=== PATIENT | female | born 1965 | race Caucasian/White ===

== ENCOUNTER 2017-01-28 06:47 | Emergency (ER) | payer MEDICAID ==
[~2017-01-28] VITALS: Wt 68.2 kg
[~2017-01-28 06:47] MED LIST: CIPR500T4 PO; DOXY100T20 PO; HYDR-3498 PO; HYDR-3720 PO; METF500T4 PO; METR500T PO; OFLO5DRO7 BOTH EARS; ONDA4TAB35 PO; PANT40TA3 PO; RANI150T9 PO; TRAM50TA2 PO
--- NOTE | 2017-01-28 07:16 | ERD ---
ER Documentation Chief Complaint Date/Time DATE: 01/28/17 TIME: 07:13 Chief Complaint cough HPI 51-year-old female complaining of cough 2 weeks. Cough is nonproductive, worse at night. She feels short of breath when she is coughing. Patient also reports pain in her right upper back and left mid back. States the pain is constant, not related to the cough. Denies fever or chills. Denies nasal congestion. Denies saddle paresthesia. Denies bowel or bladder dysfunction. ROS All systems reviewed and are negative except as per history of present illness. Medications Home Meds Active Scripts Ibuprofen* (Motrin*) 600 Mg Tab, 600 MG PO Q6H Y for PAIN AND OR ELEVATED TEMP, #30 TAB Prov:CHRISTIAN DENISE NP 01/28/17 Guaifenesin* (Robitussin*) 100 Mg/5 Ml Syrup, 200 MG PO Q4H Y for COUGH, #120 ML Prov:CHRISTIAN DENISE NP 01/28/17 Sodium Chloride (Saline Nasal Mist) 126 Ml Mist, 2 SPRAY NASAL Q2H Y for NASAL CONGESTION, #1 BOTTLE Prov:CHRISTIAN DENISE NP 01/28/17 Fluticasone Propionate (Flonase Allergy Relief) 9.9 Ml [place].susp, 1 SPRAY NASAL DAILY, #1 BOTTLE TO EACH NOSTRIL Prov:CHRISTIAN DENISE NP 01/28/17 Ofloxacin* (Floxin* Otic) 0.3% -10 Ml Soln, 5 DROP BOTH EARS BID for 10 Days, BOTTLE Prov:ERIN RIVERS PA-C 05/28/16 Tramadol HCl (Tramadol HCl) 50 Mg Tablet, 50 MG PO Q4 Y for PAIN, #20 TAB Prov:ERIN RIVERS PA-C 05/28/16 Doxycycline Hyclate* (Doxycycline Hyclate*) 100 Mg Tablet.dr, 100 MG PO BID for 7 Days, TAB Prov:ERIN RIVERS PA-C 05/28/16 Hydrocodone Bit-Acetaminophen* ([place]*) 7.5-325 Tablet, 1 TAB PO Q4H Y for PAIN , #14 TAB Prov:EDIS DEGROOT DO 02/24/16 Ranitidine Hcl* (Zantac*) 150 Mg Tablet, 150 MG PO BID Y for abdominal pain, # 30 TAB Prov:MIKAYLAGARTHTORIE DaltonRitchie ST 02/24/16 Ondansetron Hcl* (Zofran* ODT) 4 mg -ODT Tab.disper, 4 MG PO Q6 Y for NAUSEA AND /OR VOMITING, #20 TAB Prov:JUSTINE DICKENS PA-C 08/04/15 Hydrocodone Bit-Acetaminophen* ([place]*) 5-325 Mg Tab, 1 TAB PO Q6 Y for PAIN, # 20 TAB Prov:JUSTINE DICKENS PA-C 08/04/15 Metronidazole* (Flagyl*) 500 Mg Tablet, 500 MG PO Q8 for 10 Days, TAB Prov:AID JORGE NP 07/29/15 Ciprofloxacin Hcl* (Ciprofloxacin Hcl*) 500 Mg Tablet, 500 MG PO BID for 10 Days , TAB Prov:ADI JORGE NP 07/29/15 Hydrocodone Bit-Acetaminophen* ([place]*) 5-325 Mg Tab, 1 TAB PO Q6H Y for PAIN, # 15 TAB Prov:ADI JORGE NP 07/29/15 Metformin Hcl* (Metformin Hcl*) 500 Mg Tablet, 500 MG PO AC BREAKFAST DINNER for 60 Days, TAB Prov:WALTER VELASQUEZ 07/08/15 Pantoprazole* (Protonix*) 40 Mg Tablet.dr, 40 MG PO DAILY for 30 Days, TAB Prov:WALTER VELASQUEZ 07/08/15 Allergies Allergies: Coded Allergies: Penicillins (Verified Allergy, Unknown, 02/24/16) PMhx/Soc Medical and Surgical Hx: pt denies Medical Hx History of Surgery: Yes (LT EAR SX, GALL BLADDER REMOVAL) Anesthesia Reaction: Yes Hx Neurological Disorder: No Hx Respiratory Disorders: No Hx Cardiac Disorders: No Hx Psychiatric Problems: No Hx Miscellaneous Medical Probl: No Hx Alcohol Use: No Hx Substance Use: No Hx Tobacco Use: No Smoking Status: Never smoker Physical Exam Vitals Vital Signs Date Time Temp Pulse Resp B/P Pulse Ox O2 Delivery O2 Flow Rate FiO2 01/28/17 06:54 97.7 66 20 156/71 97 Physical Exam General impression: Well-developed, well-nourished. Alert, oriented, in no acute distress Head: Normocephalic, atraumatic. Eyes: PERRL, EOM normal. Sclerae are normal. Conjunctiva not injected. ENT: External canals patent. TM'sclear. Nasal mucosa boggy and swollen. Oral mucosa and oropharynx are normal. Neck: Supple, nontender. No lymphadenopathy. No nuchal rigidity. Respiration: Normal respiratory effort. Lungs clear to auscultate bilaterally. No wheezes, rales or rhonchi. Cardiovascular: Regular rate and rhythm. No murmurs or extra heart sounds. Abdomen: Abdomen normal to inspection. Nontender. No masses or organomegaly. Bowel sounds normal. Back: Normal to inspection. No midline spine tenderness. No CVA tenderness. No other tenderness. Extremities: Extremities normal to inspection, nontender. ROM normal. Neuro: Mental status normal, speech normal. TICKET ATTENDANT grossly intact. Skin: Normal turgor. No rash or lesions. Psych: Normal mood and affect. Results 24 hrs PROCEDURE: XR Chest. CLINICAL INDICATION: Cough for 2 weeks TECHNIQUE: PA and lateral views of the chest were obtained. COMPARISON: Chest x-ray dated 07/27/2015 FINDINGS: No focal airspace opacification, pleural effusion or pneumothorax is seen. The cardiomediastinal silhouette is within normal limits for size. The osseous structures are unremarkable. IMPRESSION: No radiographic evidence of acute cardiopulmonary disease. 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 Patient symptoms exam findings are consistent with cough secondary to allergic rhinitis. Chest x-ray was obtained at patient's insistence. X-rays negative, read by radiologist. I doubt pneumonia or bronchitis. I doubt spinal fracture, subluxation, spinal epidural abscess, or cauda equina syndrome. Patient appears well, stable for discharge and outpatient management. Medical decision making shared with patient and family. Education provided to patient and family. Patient and family expressed understanding of the plan. Medications on discharge: Flonase, saline nasal spray, Robitussin, ibuprofen. Follow-up: Primary care provider in 2-3 days or return to ED if worse. CHRISTIAN DENISE NP Jan 28, 2017 07:16
--- NOTE | 2017-01-28 07:50 | RADRPT ---
PROCEDURE: XR Chest. CLINICAL INDICATION: Cough for 2 weeks TECHNIQUE: PA and lateral views of the chest were obtained. COMPARISON: Chest x-ray dated 07/27/2015 FINDINGS: No focal airspace opacification, pleural effusion or pneumothorax is seen. The cardiomediastinal si lhouette is within normal limits for size. The osseous structures are unremarkable. IMPRESSION: No radiographic evidence of acute cardiopulmonary disease. RPTAT: HH .Malena Goodwin MD, MD Date Time Electronically viewed and signed by .Malena Goodwin MD, MD on 01/28/2017 07:50 .G/
[2017-01-28] MEDS ORDERED: IBUP-1542 PO (08:48)
[2017-01-28] MEDS ORDERED: SODI126M NASAL (08:48)
[2017-01-28] MEDS ORDERED: FLUT9.9S NASAL (08:48)
[2017-01-28] MEDS ORDERED: GUAI-637 PO (08:48)
== END 2017-01-28 08:57 | disposition home or self-care (01) ==
LOC: FTE 06:47
DX: R05 Cough (principal); J30.9 Allergic rhinitis, unspecified; E11.9 Type 2 diabetes mellitus without complications; Z79.84 Long term (current) use of oral hypoglycemic drugs
CPT/HCPCS: 71020; Z7502

== ENCOUNTER 2017-06-27 20:47 | Emergency (ER) | payer MEDICAID ==
[~2017-06-27] VITALS: Wt 82.0 kg
[~2017-06-27 20:47] MED LIST changes: +FLUT9.9S NASAL; +GUAI-637 PO; +IBUP-1542 PO; +SODI126M NASAL
[2017-06-27] MEDS ORDERED: ACETAMINOPHEN 500 MG TAB PO STA (21:14)
--- NOTE | 2017-06-27 22:08 | ERD ---
ER Documentation Chief Complaint Date/Time DATE: 06/27/17 TIME: 22:04 Chief Complaint Right facial numbness started last night. HTN. 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 The patient presents complaining of left ear pain. She describes 2 days of generalized malaise, rhinorrhea, nasal congestion and dry nonproductive cough. She is now describing left ear pain that is throbbing and moderate. She describes numbness to that area. It is unclear why triage noted mild left brow weakness because the patient denies this. She denies any facial droop paresthesias to the extremities or motor weakness. Her blood pressure is elevated she denies a history of hypertension or states she does not take medications. ROS All systems reviewed and are negative except as per history of present illness. Medications Home Meds Active Scripts Azithromycin* (Zithromax*) 250 Mg Tablet, 250 MG PO .ZPACK DIRECTED, #6 TAB TAKE 500 MG (2 TABS) THE FIRST DAY THEN 250 MG (1 TAB) DAYS 2-5 Prov:AKILA MCGARRY MD 06/27/17 Ibuprofen* (Motrin*) 800 Mg Tab, 800 MG PO Q6H Y for PAIN AND OR ELEVATED TEMP, #30 TAB Prov:AKILA MCGARRY MD 06/27/17 Ibuprofen* (Motrin*) 600 Mg Tab, 600 MG PO Q6H Y for PAIN AND OR ELEVATED TEMP, #30 TAB Prov:CHRISTIAN DENISE NP 01/28/17 Guaifenesin* (Robitussin*) 100 Mg/5 Ml Syrup, 200 MG PO Q4H Y for COUGH, #120 ML Prov:CHRISTIAN DENISE NP 01/28/17 Sodium Chloride (Saline Nasal Mist) 126 Ml Mist, 2 SPRAY NASAL Q2H Y for NASAL CONGESTION, #1 BOTTLE Prov:CHRISTIAN DENISE NP 01/28/17 Fluticasone Propionate (Flonase Allergy Relief) 9.9 Ml [place].susp, 1 SPRAY NASAL DAILY, #1 BOTTLE TO EACH NOSTRIL Prov:CHRISTIAN DENISE NP 01/28/17 Ofloxacin* (Floxin* Otic) 0.3% -10 Ml Soln, 5 DROP BOTH EARS BID for 10 Days, BOTTLE Prov:ERIN RIVERS PA-C 05/28/16 Tramadol HCl (Tramadol HCl) 50 Mg Tablet, 50 MG PO Q4 Y for PAIN, #20 TAB Prov:ERIN RIVERS PA-C 05/28/16 Doxycycline Hyclate* (Doxycycline Hyclate*) 100 Mg Tablet.dr, 100 MG PO BID for 7 Days, TAB Prov:ERIN RIVERS PA-C 05/28/16 Hydrocodone Bit-Acetaminophen* ([place]*) 7.5-325 Tablet, 1 TAB PO Q4H Y for PAIN , #14 TAB Prov:LEKKOS,APOSTOLOS A. DO 02/24/16 Ranitidine Hcl* (Zantac*) 150 Mg Tablet, 150 MG PO BID Y for abdominal pain, # 30 TAB Prov:LEKKOS,APOSTOLOS A. DO 02/24/16 Ondansetron Hcl* (Zofran* ODT) 4 mg -ODT Tab.disper, 4 MG PO Q6 Y for NAUSEA AND /OR VOMITING, #20 TAB Prov:JUSTINE DICKENS PA-C 08/04/15 Hydrocodone Bit-Acetaminophen* ([place]*) 5-325 Mg Tab, 1 TAB PO Q6 Y for PAIN, # 20 TAB Prov:JUSTINE DICKENS PA-C 08/04/15 Metronidazole* (Flagyl*) 500 Mg Tablet, 500 MG PO Q8 for 10 Days, TAB Prov:ADI JORGE NP 07/29/15 Ciprofloxacin Hcl* (Ciprofloxacin Hcl*) 500 Mg Tablet, 500 MG PO BID for 10 Days , TAB Prov:ADI JORGE NP 07/29/15 Hydrocodone Bit-Acetaminophen* ([place]*) 5-325 Mg Tab, 1 TAB PO Q6H Y for PAIN, # 15 TAB Prov:ADI JORGE NP 07/29/15 Metformin Hcl* (Metformin Hcl*) 500 Mg Tablet, 500 MG PO AC BREAKFAST DINNER for 60 Days, TAB Prov:WALTER VELASQUEZ 07/08/15 Pantoprazole* (Protonix*) 40 Mg Tablet.dr, 40 MG PO DAILY for 30 Days, TAB Prov:WALTER VELASQUEZ 07/08/15 Allergies Allergies: Coded Allergies: Penicillins (Verified Allergy, Unknown, 02/24/16) PMhx/Soc History of Surgery: Yes (LT EAR SX, GALL BLADDER REMOVAL) Anesthesia Reaction: No Hx Neurological Disorder: No Hx Respiratory Disorders: No Hx Cardiac Disorders: No Hx Psychiatric Problems: No Hx Miscellaneous Medical Probl: No (boarderline DM) Hx Alcohol Use: No Hx Substance Use: No Hx Tobacco Use: No Smoking Status: Never smoker FmHx Family History: No diabetes Physical Exam Vitals Vital Signs Date Time Temp Pulse Resp B/P Pulse Ox O2 Delivery O2 Flow Rate FiO2 06/27/17 22:10 68 140/76 06/27/17 20:55 97.6 69 20 207/93 98 Physical Exam General: Well developed, well nourished, no acute distress Head: Normocephalic, atraumatic Eyes: Pupils equally reactive, EOM intact ENT: Moist mucous membranes, left tympanic membrane is erythematous and bulging , posterior pharynx without swelling or exudates, no tenderness to the sinuses both frontal and maxillary Neck: Supple, no lymphadenopathy Respiratory: Lungs clear bilaterally, no distress Cardiovascular: RRR, no murmurs, rubs, or gallops Abdominal: Soft, non-tender, non-distended, no peritoneal signs : Deferred MSK: No edema, no unilateral swelling, 5/5 strength Neurologic: Alert and oriented, moving all extremities, normal speech, no focal weakness, no cerebellar signs, no pronator drift, steady gait, no facial droop or peripheral 7th nerve palsy, normal rapid alternating movements Skin: No rash Psych: Normal mood Results 24 hrs Current Medications Medications (Trade) Dose Ordered Sig/Theodora Route PRN Reason Start Time Stop Time Status Last Admin Dose Admin Acetaminophen (Tylenol Tab) 1,000 mg ONCE STAT PO 06/27/17 21:14 06/27/17 21:15 DC 06/27/17 21:21 Procedures/MDM EKG, MONITORS, & DIAGNOSTIC IMAGING: CT brain: IMPRESSION: 1. Unremarkable CT brain for age. Negative for evidence of acute intracranial hemorrhage or significant mass effect. Cause for headache is not evident. 2. Left middle ear ossicles are not visualized. Recommend correlation with ENT history and evidence of left conductive hearing loss. Ordered in triage EKG: I reviewed and interpreted a 12-lead EKG. Rhythm: Normal sinus rhythm Ectopy: None Intervals: No abnormalities ST segments: No elevations or depressions T waves: No contiguous inversions MEDICAL DECISION MAKING: The patient presents with left ear pain rhinorrhea nasal congestion and dry cough that is most consistent with likely viral process. Her clinical exam reveals a left otitis media. This is most likely viral but the patient will benefit from antibiotics given evidence of otitis media. The patient does not have any motor weakness. Again unclear why triage noted brow weakness as this is not accurate. The patient has no evidence of 7th nerve palsy and no evidence of stroke. She has a thorough and nonfocal neurologic examination. Patient's blood pressure was elevated (>120/80) but appears stable without evidence of hypertensive emergency or urgency. The patient was counseled about the risks of hypertension and urged to pursue outpatient monitoring and therapy within a week with their primary care physician. Given the patient is having an elevated blood pressure with ear pain I believe a CT of the brain to rule out hemorrhage would be appropriate. The pain response may be causing elevated blood pressure therefore I do not believe that initiation of antihypertensive is absolutely necessary. The patient was strongly urged to follow-up with primary care physician for repeat blood pressure to evaluate and establish a possible diagnosis of essential hypertension. ER COURSE: The patient was given Tylenol. CT brain is negative. The patient will be started on azithromycin. I kept the patient and/or family informed of laboratory and diagnostic imaging results throughout the emergency room course. DISPOSITION PLAN: We discussed follow up with the patient's primary care doctor within 24 to 48 hours as needed. We also discussed return to the emergency room for worsening symptoms or worsening condition. Outpatient referral: [None required] Discharge Medications: Motrin, azithromycin Departure Diagnosis: Primary Impression: Upper respiratory tract infection URI type: unspecified URI Qualified Code: J06.9 - Upper respiratory tract infection, unspecified type Additional Impressions: Left acute otitis media Hypertension Hypertension type: unspecified Qualified Code: I10 - Hypertension, unspecified type Condition: Stable AKILA MCGARRY MD Jun 27, 2017 22:08
[2017-06-27] MEDS ORDERED: AZIT250T94 PO (22:09)
[2017-06-27] MEDS ORDERED: IBUP800T25 PO (22:09)
--- NOTE | 2017-06-27 22:43 | RADRPT ---
PROCEDURE: CT HEAD WITHOUT CONTRAST: CLINICAL INDICATION: 52 years of age, female, headache . COMPARISON: None available. TECHNIQUE: CT of the head was performed without IV contrast. Coronal and sagittal reformatted images were obtained from the axial source images. Images were reviewed on a high-resolution PACS workstat ion. Dose information: The estimated radiation dose (CTDIvol mGy) for each series in this exam is 44. Th e estimated cumulative dose (DLP mGy-cm) is 720. One or more of the following dose reduction techniques were used: - Automated exposure control. - Adjustment of the mA and/or kV according to patient size. - Use of iterative reconstruction technique. FINDINGS: Parenchyma: Negative for evidence of acute intracranial hemorrhage, significant mass effect or midli ne shift. [place]-white matter differentiation is maintained. Ventricles and extra-axial spaces: Ventricles are proportionate to the sulci and in keeping with age . No abnormal extra-axial fluid collections are identified. Visualized paranasal sinuses: Clear. Mastoid air cells: Clear. Left middle ear ossicles are not visualized. Bones: No focal abnormality. Additional comment: None. IMPRESSION: 1. Unremarkable CT brain for age. Negative for evidence of acute intracranial hemorrhage or signifi cant mass effect. Cause for headache is not evident. 2. Left middle ear ossicles are not visualized. Recommend correlation with ENT history and evidence of left conductive hearing loss. RPTAT: HCTS Physician Macrina Date Time Electronically viewed and signed by Physician Macrina on 06/27/2017 22:42 /
[2017-06-27 23:15] VITALS: BP 135/77; PULSE 68; RESP 20
== END 2017-06-27 23:16 | disposition home or self-care (01) ==
LOC: E/R 20:47
DX: J06.9 Acute upper respiratory infection, unspecified (principal); H66.92 Otitis media, unspecified, left ear; I10 Essential (primary) hypertension; Z79.84 Long term (current) use of oral hypoglycemic drugs
CPT/HCPCS: 70450; 93005; Z7502; Z7610

== ENCOUNTER 2018-06-15 06:16 | Emergency (ER) | END 2018-06-15 07:18 | disposition home or self-care (01) ==

== ENCOUNTER 2019-01-22 19:47 | Emergency (ER) | payer OTHER ==
[~2019-01-22] VITALS: Ht 152.4 cm; Wt 83.4 kg
[~2019-01-22 19:47] MED LIST changes: +ALBU8.5H8 INH; +AZIT250T PO; +HYDR25TA6 PO; +IBUP800T48 PO; +METF500T24 PO; -METF500T4 PO; +RANI150T35 PO; -RANI150T9 PO
[2019-01-22 19:59] VITALS: Ht 152.4 cm; Wt 83.4 kg
--- NOTE | 2019-01-22 23:32 | ERD ---
ER Documentation Chief Complaint Chief Complaint lower abd pain x 2 months, worse today HPI This is a 53-year-old female with a past medical history of diabetes, hypertension, asthma, GERD, cholecystitis status post cholecystectomy who is presenting with exacerbated chronic lower abdominal pain. The patient reports that she has had intermittent waxing and waning moderate sharp colicky suprapubic abdominal pain. She had an exacerbated episode this evening, which is what prompted her to come to the emergency department. The patient reports that her abdominal pain is migratory, and sometimes she feels it in the left lower quadrant and left upper quadrant as well. Tonight, however, her symptoms are more isolated to the suprapubic region. The patient denies dysuria or hematuria or urgency or frequency. She denies any constipation or diarrhea. She denies any black or bloody or tarry stools. She denies nausea or vomiting. The patient reports that she has not followed up with her doctor for her symptoms. The patient denies feeling sick recently. The patient denies fever or chills. The patient has had no headache or vision changes. The patient does not endorse neck or back pain. The patient denies lightheadedness or dizziness. The patient has had no chest pain or trouble breathing. The patient has had no focal deficits. The patient has had no weakness or numbness or tingling to the face or extremities. ROS All systems reviewed and are negative except as per history of present illness. Medications Home Meds Active Scripts Albuterol Sulfate* (Proair HFA*) 8.5 Gm Hfa.aer.ad, 2 PUFF INH Q4H PRN for WHEEZING AND SOB, #1 INHALER Prov:ASTRID CHAVIRA 06/15/18 Hydrochlorothiazide* (Hydrochlorothiazide*) 25 Mg Tab, 25 MG PO DAILY, #30 TAB Prov:ASTRID CHAVIRA 06/15/18 Azithromycin* (Zithromax*) 250 Mg Tablet, 250 MG PO .ZPACK DIRECTED, #6 TAB TAKE 500 MG (2 TABS) THE FIRST DAY THEN 250 MG (1 TAB) DAYS 2-5 Prov:AKILA MCGARRY MD 06/27/17 Ibuprofen* (Motrin*) 800 Mg Tab, 800 MG PO Q6H PRN for PAIN AND OR ELEVATED TEMP, #30 TAB Prov:AKILA MCGARRY MD 06/27/17 Ibuprofen* (Motrin*) 600 Mg Tab, 600 MG PO Q6H PRN for PAIN AND OR ELEVATED TEMP, #30 TAB Prov:CHRISTIAN DENISE NP 01/28/17 Guaifenesin* (Robitussin*) 100 Mg/5 Ml Syrup, 200 MG PO Q4H PRN for COUGH, #120 ML Prov:CHRISTIAN DENISE NP 01/28/17 Sodium Chloride (Saline Nasal Mist) 126 Ml Mist, 2 SPRAY NASAL Q2H PRN for NASAL CONGESTION, #1 BOTTLE Prov:CHRISTIAN DENISE TEACHING PASTOR 01/28/17 Fluticasone Propionate (Flonase Allergy Relief) 9.9 Ml [place].susp, 1 SPRAY NASAL DAILY, #1 BOTTLE TO EACH NOSTRIL Prov:CHRISTIAN DENISE NP 01/28/17 Ofloxacin* (Floxin* Otic) 0.3% -10 Ml Soln, 5 DROP BOTH EARS BID for 10 Days, BOTTLE Prov:ERIN RIVERS PA-C 05/28/16 Tramadol HCl (Tramadol HCl) 50 Mg Tablet, 50 MG PO Q4 PRN for PAIN, #20 TAB Prov:ERIN RIVERS PA-C 05/28/16 Doxycycline Hyclate* (Doxycycline Hyclate*) 100 Mg Tablet.dr, 100 MG PO BID for 7 Days, TAB Prov:ERIN RIVERS PA-C 05/28/16 Hydrocodone Bit-Acetaminophen* ([place]*) 7.5-325 Tablet, 1 TAB PO Q4H PRN for PAIN, #14 TAB Prov:EDIS DEGROOT DO 02/24/16 Ranitidine Hcl* (Zantac*) 150 Mg Tablet, 150 MG PO BID PRN for abdominal pain, #30 TAB Prov:EDIS DEGROOT DO 02/24/16 Ondansetron Hcl* (Zofran* ODT) 4 mg -ODT Tab.disper, 4 MG PO Q6 PRN for NAUSEA AND/OR VOMITING, #20 TAB Prov:JUSTINE DICKENS PA-C 08/04/15 Hydrocodone Bit-Acetaminophen* ([place]*) 5-325 Mg Tab, 1 TAB PO Q6 PRN for PAIN, #20 TAB Prov:JUSTINE DICKENS PA-C 08/04/15 Metronidazole* (Flagyl*) 500 Mg Tablet, 500 MG PO Q8 for 10 Days, TAB Prov:ADI JORGE FRANKLIN 07/29/15 Ciprofloxacin Hcl* (Ciprofloxacin Hcl*) 500 Mg Tablet, 500 MG PO BID for 10 Days, TAB Prov:ADI JORGE TEACHING PASTOR 07/29/15 Hydrocodone Bit-Acetaminophen* ([place]*) 5-325 Mg Tab, 1 TAB PO Q6H PRN for PAIN, #15 TAB Prov:ADI JORGE TEACHING PASTOR 07/29/15 Metformin Hcl* (Metformin Hcl*) 500 Mg Tablet, 500 MG PO AC BREAKFAST DINNER for 60 Days, TAB Prov:WALTER VELASQUEZ 07/08/15 Pantoprazole* (Protonix*) 40 Mg Tablet.dr, 40 MG PO DAILY for 30 Days, TAB Prov:WALTER VELASQUEZ 07/08/15 Allergies Allergies: Coded Allergies: Penicillins (Verified Allergy, Unknown, 02/24/16) PMhx/Soc History of Surgery: Yes (LT EAR SX, Cholecystectomy) Anesthesia Reaction: No Hx Neurological Disorder: No Hx Respiratory Disorders: Yes (Asthma) Hx Cardiac Disorders: Yes (Hypertension, diabetes) Hx Psychiatric Problems: No Hx Miscellaneous Medical Probl: Yes (GERD) Hx Alcohol Use: No Hx Substance Use: No Hx Tobacco Use: No Smoking Status: Never smoker FmHx Family History: diabetes Physical Exam Vitals Vital Signs Date Temp Pulse Resp B/P (MAP) Pulse Ox O2 O2 Flow FiO2 Time Delivery Rate 01/23/19 65 18 133/87 100 00:20 (102) 01/22/19 98.2 71 18 189/90 98 19:59 (123) Physical Exam Const: No apparent distress, well-developed, well-nourished Head: Normocephalic, Atraumatic Eyes: Normal Conjunctiva. Extraocular movements intact. ENT: Normal External Ears, Nose and Mouth. Neck: Full range of motion. No meningismus. Resp: Clear to auscultation bilaterally, No wheezes, rales or rhonchi Cardio: Regular rate and rhythm. No murmurs, rubs or gallops Abd: Soft, non distended. Suprapubic tenderness. Normal bowel sounds Skin: No petechiae or rashes Back: No midline tenderness. No CVA tenderness Ext: No cyanosis, or edema Neur: Awake and alert, oriented 4. Cranial nerves intact. No facial droop. Normal strength, sensation and coordination. Psych: Normal Mood and Affect Result Diagram: 01/22/19 2325 01/22/192324 Results 24 hrs Laboratory Tests Test 01/22/19 22:34 01/22/19 23:25 Urine Color STRAW Urine Clarity CLEAR Urine pH 6.0 Urine Specific [place] 1.005 Urine Ketones NEGATIVE mg/dL Urine Nitrite NEGATIVE mg/dL Urine Bilirubin NEGATIVE mg/dL Urine Urobilinogen NEGATIVE mg/dL Urine Leukocyte Esterase NEGATIVE Air[place]/ul Urine Hemoglobin NEGATIVE mg/dL Urine Glucose NEGATIVE mg/dL Urine Total Protein NEGATIVE mg/dl White Blood Count 7.3 10^3/ul Red Blood Count 4.61 10^6/ul Hemoglobin 13.5 g/dl Hematocrit 40.4 % Mean Corpuscular Volume 87.6 fl Mean Corpuscular Hemoglobin 29.3 pg Mean Corpuscular Hemoglobin Concent 33.4 g/dl Red Cell Distribution Width 13.2 % Platelet Count 190 10^3/UL Mean Platelet Volume 12.3 fl Immature Granulocytes % 0.400 % Neutrophils % 60.0 % Lymphocytes % 30.1 % Monocytes % 7.4 % Eosinophils % 1.6 % Basophils % 0.5 % Nucleated Red Blood Cells % 0.0 /100WBC Immature Granulocytes # 0.030 10^3/ul Neutrophils # 4.4 10^3/ul Lymphocytes # 2.2 10^3/ul Monocytes # 0.5 10^3/ul Eosinophils # 0.1 10^3/ul Basophils # 0.0 10^3/ul Nucleated Red Blood Cells # 0.0 10^3/ul Sodium Level 142 mmol/L Potassium Level 4.6 mmol/L Chloride Level 104 mmol/L Carbon Dioxide Level 26 mmol/L Anion Gap 12 Blood Urea Nitrogen 12 mg/dl Creatinine 0.43 mg/dl Est Glomerular Filtrat Rate mL/min > 60 mL/min Glucose Level 137 mg/dl Calcium Level 9.5 mg/dl Total Bilirubin 0.5 mg/dl Direct Bilirubin 0.00 mg/dl Indirect Bilirubin 0.5 mg/dl Aspartate Amino Transf (AST/SGOT) 31 IU/L Alanine Aminotransferase (ALT/SGPT) 22 IU/L Alkaline Phosphatase 66 IU/L Total Protein 7.4 g/dl Albumin 4.3 g/dl Globulin 3.10 g/dl Albumin/Globulin Ratio 1.38 Lipase 37 U/L Current Medications Medications Dose Sig/Theodora Start Time Status Last (Trade) Ordered Route PRN Stop Time Admin Dose Reason Admin Ketorolac 15 mg ONCE STAT 01/23/19 DC Tromethamine IV 00:51 01/23/19 (Toradol) 00:52 Sodium 1,000 ml @ Q1H ONCE 01/23/19 Chloride 1,000 mls/hr IV 01:00 01/23/19 01:59 Procedures/MDM MDM The patient's presentation warrants further investigation. Previous medical records, if available, were reviewed. LABS The patient's laboratory testing was obtained and reviewed. No emergent treatment was required unless described below. CBC: No E/o systemic infection or severe anemia or thrombocytopenia Chemistry: No E/o severe acidosis or alkalosis or renal failure or liver disease or diabetic ketoacidosis Lipase: No E/o pancreatitis Urine: No E/o acute infection or hematuria IMAGING Imaging and Radiology interpretation reviewed. CT abdomen pelvis FINDINGS: There is no bowel obstruction or ileus. The appendix is visualized. There is no evidence for appendicitis. There is no evidence for diverticulitis. There is no free fluid. The liver is overall normal in size. No intrahepatic lesions are identified. The gallbladder has been removed. There is no definite biliary ductal dilation. Pancreas is normal in appearance. The spleen is unremarkable. There are no adrenal masses. The aorta is normal caliber. Kidneys are normal in appearance without hydronephrosis, mass or calculus.. Ureters are of normal caliber and without evidence for an obstructing calculus. The urinary bladder is partially contracted. Uterus is enlarged measuring 9.9 x 5.6 x 8.6 cm. The ovaries are not well characterized. Limited evaluation of th e lung bases demonstrates bibasilar atelectasis. There are degenerative changes of the lumbar spine. There is 3 mm anterior subluxation L5 on S1 with associated severe bilateral facet hypertrophy. IMPRESSION: 1. No bowel obstruction or ileus. 2. No evidence for appendicitis or diverticulitis. 3. No obstructive uropathy. Contracts urinary bladder. 4. Status post cholecystectomy. 5. Enlarged uterus, possibly fibroids. Recommend correlation with pelvic ultrasound. 6. Degenerative lumbar spine including 3 mm anterior subluxation of L5 on S1. Electronically viewed and signed by Jason Armendariz MD, on 01/23/2019 00:57 TREATMENT/DISPOSITION The patient presents with suprapubic abdominal pain. The patient does not have a urinary tract infection. Bladder spasm is certainly a possibility. The patient also appears to have uterine fibroids, which could be the etiology of her symptoms as well. The patient also endorses intermittent episodes of left- sided pain as well. A CT scan was completed. The patient does not endorse any black or bloody or tarry stools. I do not see evidence of diverticulosis or diverticulitis. The patient does not have any evidence of peritonitis. The patient does not have clinical symptoms concerning for mesenteric ischemia or ischemic colitis. The patient does not have right upper quadrant tenderness, and she had a previous cholecystectomy. I have low suspicion for gallstones, cholecystitis or biliary colic. The patient does not have any epigastric pain. I have low suspicion for gastritis, PUD or GERD at this time. The patient does not have left upper quadrant tenderness currently. Her lipase is normal. I have low suspicion for pancreatitis. The patient does not have any right lower quadrant tenderness, or periumbilical tenderness. I have low suspicion for appendicitis. The patient does not have any flank tenderness. The patient does not have gross hematuria. I have decreased suspicion for nephrolithiasis or renal colic. The patient does not have any palpable pulsatile mass or severe abdominal pain radiating to the back. I have low suspicion for aortic aneurysm, dissection or rupture. The patient was treated with IV fluids, Toradol. DISCHARGE Upon reevaluation of the patient, symptoms have improved. No emergent diagnoses were identified. At this time, I feel that the patient stable for discharge. The patient was instructed to follow-up with a primary care physician in 1-3 days. The patient will be given strict precautions with which to return to the emergency department. Prescriptions: Zofran, ibuprofen The patient's blood pressure was elevated at greater than 120/80 while in the emergency department. The patient was otherwise stable with no evidence of hypertensive urgency or emergency. The patient does not require admission for blood pressure control. I have discussed with the patient the risks of hypertension. I have instructed the patient to return to the ER for any new or worsening symptoms including chest pain, shortness of breath, headache, blurred vision, confusion, nausea, vomiting or LOC. I have advised the patient to follow up with the primary care physician for outpatient monitoring and treatment for hypertension in 1-3 days. Disclaimer: Inadvertent spelling and grammatical errors are likely due to EHR/dictation software use and do not reflect on the overall quality of patient care. Note that the electronic time recorded on this note does not necessarily reflect the actual time of the patient encounter. Departure Diagnosis: Primary Impression: Suprapubic pain Additional Impression: Uterine fibroid Uterine leiomyoma location: unspecified location Qualified Codes: D25.9 - Leiomyoma of uterus, unspecified Condition: Stable Patient Instructions: Abdominal Pain Additional Instructions: Thank you for for coming to [facility] for your care today. Please ask your nurse or provider if you have questions about your care today and do not leave until all your questions have been answered. Please use any medications given as directed and follow-up with your doctor (or the doctor you were referred to) in the next 1-3 days. If you do not have a primary care doctor you may follow up at the [facility] or [facility] (listed below). You may also use motrin and tylenol as needed for fever and/or pain unless instructed otherwise by your provider or nurse. Indications for more urgent follow-up have been discussed, but you may return to the Emergency Department at ANY time for any worrisome or worsening symptoms. If you have abdominal pain, please know that no test or exam you received is perfect and you should follow up within 8 hours for continued pain. If you had any imaging studies today, such as an X-Ray or CT Scan, these studies will be reviewed later by a radiologist. You will be called if there are important findings that were not identified today, so make sure the contact information you provided at registration is correct. If you received any narcotic pain control medicine today, such as Vicodin, Morphine or Dilaudid, your coordination and judgment may be affected for a number of hours. Please do not drive or operate heavy machinery, and you may want someone to assist you at home. If you were given a prescription for yessenia cotic medication, be aware that it is very addictive- use sparingly and only if necessary. PLEASE SEEK FURTHER EVALUATION AND MANAGEMENT AT YOUR DOCTORS OFFICE WITHIN THE NEXT 1-3 DAYS. IT IS YOUR RESPONSIBILITY TO MAKE AN APPOINTMENT FOR FOLOW-UP CARE. IF YOU HAVE A PRIMARY DOCTOR, PLEASE CALL THEIR OFFICE TO SCHEDULE AN APPOINTMENT FOR FOLLOW UP. IF YOU DO NOT HAVE A PRIMARY DOCTOR YOU CAN CALL OUR PHYSICIAN REFERRAL HOTLINE AT IF YOU CAN NOT AFFORD TO SEE A PHYSICIAN YOU CAN CHOSE FROM THE FOLLOWING [facility]: [facility] [address] [facility] [address] [facility]. [facility] [address] [facility] [address] [facility] [address] [facility] [facility] [address] EMBER ROSALES MD Jan 22, 2019 23:32
[2019-01-23 00:20] VITALS: BP 133/87; PULSE 65; RESP 18
[2019-01-23] MEDS ORDERED: KETOROLAC 15 MG INJ IV STA (00:51)
[2019-01-23] MEDS ORDERED: SOD CHLORIDE 0.9% 1,000 ML IV ONE (01:00)
[2019-01-23] MEDS ORDERED: IBUP-1542 PO (01:12)
[2019-01-23] MEDS ORDERED: ONDA4TAB8 PO (01:13)
== END 2019-01-23 01:35 | disposition home or self-care (01) ==
LOC: E/R 19:47
DX: D25.9 Leiomyoma of uterus, unspecified (principal); I10 Essential (primary) hypertension; J45.909 Unspecified asthma, uncomplicated; E11.9 Type 2 diabetes mellitus without complications; Z79.84 Long term (current) use of oral hypoglycemic drugs
CPT/HCPCS: 36415; 74176; 80053; 81003; 83690; 85025; 96374; J1885; J7030; Z7502

== ENCOUNTER 2019-01-25 13:11 | Emergency (ER) | payer OTHER ==
[~2019-01-25] VITALS: Ht 160 cm; Wt 83.4 kg
[~2019-01-25 13:11] MED LIST changes: +ONDA4TAB8 PO
[2019-01-25 13:17] VITALS: Ht 160 cm; Wt 83.4 kg
[2019-01-25] MEDS ORDERED: ACET500C5 PO (17:58)
[2019-01-25 18:14] VITALS: BP 167/84; PULSE 65; RESP 18
--- NOTE | 2019-01-26 14:39 | ERD ---
ER Documentation Chief Complaint Chief Complaint c/o vag bleed x2 days, Hx: fibroids HPI 53-year-old female patient with a past medical history of diabetes, asthma, hypertension presents to the ED stating that she had some vaginal bleeding that started yesterday. Patient was here a few days ago and was diagnosed with fibroids for her lower abdominal pain. Patient had a full workup. Patient went to the clinic and was sent here for further evaluation and treatment. Patient reports that she has had to change to 3 pads earlier today. Denies any fever, chills, nausea, vomiting, diarrhea, neck stiffness, chest pain, shortness of breath. Denies any bloody stools, hemoptysis, hematuria. ROS All systems reviewed and are negative except as per history of present illness. Medications Home Meds Active Scripts Acetaminophen* (Tylophen*) 500 Mg Capsule, 1 CAP PO Q6H PRN for PAIN AND OR ELEVATED TEMP, #20 CAP Prov:ERIN RIVERS PA-C 01/25/19 Ondansetron Hcl* (Zofran*) 4 Mg Tablet, 4 MG PO Q8H PRN for NAUSEA AND/OR VOMITING, #30 TAB Prov:EMBER KELLY MD 01/23/19 Ibuprofen* (Motrin*) 600 Mg Tab, 600 MG PO Q6H PRN for PAIN AND/OR INFLAMMATION, #30 TAB Prov:EMBER KELLY MD 01/23/19 Albuterol Sulfate* (Proair HFA*) 8.5 Gm Hfa.aer.ad, 2 PUFF INH Q4H PRN for WHEEZING AND SOB, #1 INHALER Prov:ASTRID CHAVIRA 06/15/18 Hydrochlorothiazide* (Hydrochlorothiazide*) 25 Mg Tab, 25 MG PO DAILY, #30 TAB Prov:ASTRID CHAVIRA 06/15/18 Azithromycin* (Zithromax*) 250 Mg Tablet, 250 MG PO .AnabellaPACK DIRECTED, #6 TAB TAKE 500 MG (2 TABS) THE FIRST DAY THEN 250 MG (1 TAB) DAYS 2-5 Prov:AKILA MCGARRY MD 06/27/17 Ibuprofen* (Motrin*) 800 Mg Tab, 800 MG PO Q6H PRN for PAIN AND OR ELEVATED TEMP, #30 TAB Prov:AKILA MCGARRY MD 06/27/17 Ibuprofen* (Motrin*) 600 Mg Tab, 600 MG PO Q6H PRN for PAIN AND OR ELEVATED TEMP, #30 TAB Prov:CHRISTIAN DENISE NP 01/28/17 Guaifenesin* (Robitussin*) 100 Mg/5 Ml Syrup, 200 MG PO Q4H PRN for COUGH, #120 ML Prov:CHRISTIAN DENISE NP 01/28/17 Sodium Chloride (Saline Nasal Mist) 126 Ml Mist, 2 SPRAY NASAL Q2H PRN for NASAL CONGESTION, #1 BOTTLE Prov:CHRISTIAN DENISE NP 01/28/17 Fluticasone Propionate (Flonase Allergy Relief) 9.9 Ml [place].susp, 1 SPRAY NASAL DAILY, #1 BOTTLE TO EACH NOSTRIL Prov:CHRISTIAN DENISE NP 01/28/17 Ofloxacin* (Floxin* Otic) 0.3% -10 Ml Soln, 5 DROP BOTH EARS BID for 10 Days, BOTTLE Prov:ERIN RIVERS PA-C 05/28/16 Tramadol HCl (Tramadol HCl) 50 Mg Tablet, 50 MG PO Q4 PRN for PAIN, #20 TAB Prov:ERIN RIVERS PA-C 05/28/16 Doxycycline Hyclate* (Doxycycline Hyclate*) 100 Mg Tablet.dr, 100 MG PO BID for 7 Days, TAB Prov:ERIN RIVERS PA-C 05/28/16 Hydrocodone Bit-Acetaminophen* ([place]*) 7.5-325 Tablet, 1 TAB PO Q4H PRN for PAIN, #14 TAB Prov:EDIS DEGROOT DO 02/24/16 Ranitidine Hcl* (Zantac*) 150 Mg Tablet, 150 MG PO BID PRN for abdominal pain, #30 TAB Prov:EDIS DEGROOT DO 02/24/16 Ondansetron Hcl* (Zofran* ODT) 4 mg -ODT Tab.disper, 4 MG PO Q6 PRN for NAUSEA AND/OR VOMITING, #20 TAB Prov:JUSTINE DICKENS PA-C 08/04/15 Hydrocodone Bit-Acetaminophen* ([place]*) 5-325 Mg Tab, 1 TAB PO Q6 PRN for PAIN, #20 TAB Prov:JUSTINE DICKENS PA-C 08/04/15 Metronidazole* (Flagyl*) 500 Mg Tablet, 500 MG PO Q8 for 10 Days, TAB Prov:AMYLUZADI SECRETARY ADMINISTRATIVE ASSISTANT 07/29/15 Ciprofloxacin Hcl* (Ciprofloxacin Hcl*) 500 Mg Tablet, 500 MG PO BID for 10 Days, TAB Prov:ANIAADI SECRETARY ADMINISTRATIVE ASSISTANT 07/29/15 Hydrocodone Bit-Acetaminophen* ([place]*) 5-325 Mg Tab, 1 TAB PO Q6H PRN for PAIN, #15 TAB Prov:ADI JORGE NP 07/29/15 Metformin Hcl* (Metformin Hcl*) 500 Mg Tablet, 500 MG PO AC BREAKFAST DINNER for 60 Days, TAB Prov:WALTER VELASQUEZ 07/08/15 Pantoprazole* (Protonix*) 40 Mg Tablet.dr, 40 MG PO DAILY for 30 Days, TAB Prov:RONWALTER LEVY 07/08/15 Allergies Allergies: Coded Allergies: Penicillins (Verified Allergy, Unknown, 02/24/16) PMhx/Soc History of Surgery: Yes (LT EAR SX, Cholecystectomy) Anesthesia Reaction: No Hx Neurological Disorder: No Hx Respiratory Disorders: Yes (Asthma) Hx Cardiac Disorders: Yes (Hypertension, diabetes) Hx Psychiatric Problems: No Hx Miscellaneous Medical Probl: Yes (GERD) Hx Alcohol Use: No Hx Substance Use: No Hx Tobacco Use: No Smoking Status: Never smoker FmHx Family History: No diabetes, No coronary disease Physical Exam Vitals Vital Signs Date Temp Pulse Resp B/P (MAP) Pulse Ox O2 O2 Flow FiO2 Time Delivery Rate 01/25/19 98.6 65 18 167/84 98 Room Air 18:14 (111) 01/25/19 97.5 70 20 170/83 96 13:17 (112) Physical Exam Const: [id number], well-nourished. In no acute distress. Head: Atraumatic, normocephalic Eyes: Normal Conjunctiva without injection. No purulent discharge. ENT: Normal external ear, nose. Moist oropharynx without tonsillar exudates. Non-erythematous pharynx. Uvula midline. No drooling. No trismus. Neck: No cervical midline tenderness. Full range of motion. No meningismus. No cervical lymphadenopathy. No JVD. Resp: Clear to auscultation bilaterally. No wheezing, rhonchi, rales, or crackles. No accessory muscle use. No retractions. Cardio: Regular rate and rhythm. No murmurs, rubs or gallops. Abd: Soft, nontender, non distended. Normal bowel sounds. No palpable masses. No rebound tenderness. No guarding. Negative McBurney's point. Negative psoas sign. Negative obturator sign. : MDM Skin: No petechiae or rashes Back: No midline tenderness. No CVA tenderness. Ext: No cyanosis, or edema. Neur: Awake and alert. Normal gait. Normal coordination. Psych: Normal Mood and Affect Result Diagram: 01/25/19 1559 01/25/19 1559 Results 24 hrs Laboratory Tests Test 01/25/19 15:59 White Blood Count 7.5 10^3/ul Red Blood Count 4.71 10^6/ul Hemoglobin 13.7 g/dl Hematocrit 41.7 % Mean Corpuscular Volume 88.5 fl Mean Corpuscular Hemoglobin 29.1 pg Mean Corpuscular Hemoglobin Concent 32.9 g/dl Red Cell Distribution Width 13.1 % Platelet Count 208 10^3/UL Mean Platelet Volume 12.4 fl Immature Granulocytes % 0.300 % Neutrophils % 61.0 % Lymphocytes % 29.3 % Monocytes % 7.3 % Eosinophils % 1.6 % Basophils % 0.5 % Nucleated Red Blood Cells % 0.0 /100WBC Immature Granulocytes # 0.020 10^3/ul Neutrophils # 4.6 10^3/ul Lymphocytes # 2.2 10^3/ul Monocytes # 0.6 10^3/ul Eosinophils # 0.1 10^3/ul Basophils # 0.0 10^3/ul Nucleated Red Blood Cells # 0.0 10^3/ul Urine Color RED Urine Clarity CLEAR Urine pH 6.0 Urine Specific [place] 1.005 Urine Ketones NEGATIVE mg/dL Urine Nitrite NEGATIVE mg/dL Urine Bilirubin NEGATIVE mg/dL Urine Urobilinogen NEGATIVE mg/dL Urine Leukocyte Esterase NEGATIVE Airam/ul Urine Microscopic RBC > 182 /HPF Urine Microscopic WBC 37 /HPF Urine Squamous Epithelial Cells FEW /HPF Urine Bacteria FEW /HPF Urine Hemoglobin 3+ mg/dL Urine Glucose NEGATIVE mg/dL Urine Total Protein 2+ mg/dl Sodium Level 143 mmol/L Potassium Level 3.7 mmol/L Chloride Level 107 mmol/L Carbon Dioxide Level 26 mmol/L Anion Gap 10 Blood Urea Nitrogen 13 mg/dl Creatinine 0.49 mg/dl Est Glomerular Filtrat Rate mL/min > 60 mL/min Glucose Level 112 mg/dl Calcium Level 9.4 mg/dl Total Bilirubin 0.2 mg/dl Direct Bilirubin 0.00 mg/dl Indirect Bilirubin 0.2 mg/dl Aspartate Amino Transf (AST/SGOT) 17 IU/L Alanine Aminotransferase (ALT/SGPT) 26 IU/L Alkaline Phosphatase 88 IU/L Total Protein 7.7 g/dl Albumin 4.5 g/dl Globulin 3.20 g/dl Albumin/Globulin Ratio 1.40 Lipase 56 U/L Procedures/MDM 53-year-old female patient with a past medical history of diabetes, asthma, hypertension presents to ED complaining of other bleeding that started 2 days ago. Patient is afebrile and nontoxic-appearing. Patient blood pressure is 170/83. Hypertension blood Pressure Assessment: Patient's blood pressure was el evated (>120/80) but appears stable without evidence of hypertension emergency or urgency. The patient was counseled about the risks of hypertension and urged to pursue outpatient monitoring and therapy within a week with their primary care physician. Patient was further worked up with CBC, CMP, lipase, UA, ultrasound of the pelvis CBC: No leukocytosis. No e/o of systemic infection. No e/o anemia. CMP: No e/o severe acidosis, alkalosis, renal failure, diabetic ketoacidosis, liver disease Lipase within normal limits. Urine: No leukocyte esterase, no nitrites, 3+ hematuria. Pelvic Exam: Account Technician present Abdomen: Nontender External Genitalia: Normal Skin Speculum: Normal vaginal mucosa, normal cervical discharge, vaginal bleeding noted, however stable and not hemorrhaging. Bimanual: No adnexal masses or tenderness, No CMT IMPRESSION: 1. Abnormal thickening of the endometrium measuring 1.2 cm with echogenic nodules extending into the junctional zone and central uterine myometrium. The appearance is concerning for endometrial cancer with myometrial invasion. Differential diagnosis includes, but is not limited to, endometrial hyperplasia/polyps with adenomyosis. Recommend gynecologic consultation and endometrial biopsy. 2. 2 cm intramural fibroid as described. 3. Ovaries are not visualized. Negative for evidence of an adnexal mass. Patient was noted to have 2 cm intramural fibroids. Due to the appearance of the endometrium, endometrial biopsy is recommended and patient was strictly instructed to follow-up with her motion study analyst for this procedure as this is important for postmenopausal bleeding. Low suspicion for ectopic , ovarian torsion, gastritis, GERD, peptic ulcer disease, cholecystitis, choledocholithiasis, cholangitis, pancreatitis, appendicitis, bowel obstruction, ileus, volvulus, nephrolithiasis, pyelonephritis, hepatitis, perforated viscus, diverticulitis, strangulated/incarcerated hernia, DKA, acute abdomen, mesenteric ischemia or other emergent conditions. Diagnosis: Postmenopausal bleeding Follow up with primary care physician in 1-2 days. Instructed patient to return to the ED sooner for any worsening symptoms. Patient's questions were answered. Patient is hemodynamically stable. Patient understood and agreed with discharge plan. Patient discharged stable. Disclaimer: Inadvertent spelling and grammatical errors are likely due to EHR/dictation software use and do not reflect on the overall quality of patient care. Also, please note that the electronic time recorded on this note does not necessarily reflect the actual time of the patient encounter. Departure Diagnosis: Primary Impression: Post-menopause bleeding Condition: Stable Patient Instructions: Endometrial Biopsy, Understanding Uterine Bleeding Referrals: [facility] YOU HAVE RECEIVED A MEDICAL SCREENING EXAM AND THE RESULTS INDICATE THAT YOU DO NOT HAVE A CONDITION THAT REQUIRES URGENT TREATMENT IN THE EMERGENCY DEPARTMENT. FURTHER EVALUATION AND TREATMENT OF YOUR CONDITION CAN WAIT UNTIL YOU ARE SEEN IN YOUR DOCTORS OFFICE WITHIN THE NEXT 1-2 DAYS. IT IS YOUR RESPONSIBILITY TO MAKE AN APPOINTMENT FOR FOLOW-UP CARE. IF YOU HAVE A PRIMARY DOCTOR --you should call your primary doctor and schedule an appointment IF YOU DO NOT HAVE A PRIMARY DOCTOR YOU CAN CALL OUR PHYSICIAN REFERRAL HOTLINE AT IF YOU CAN NOT AFFORD TO SEE A PHYSICIAN YOU CAN CHOSE FROM THE FOLLOWING [facility] [address] [facility] [address] [facility] [facility] [address] [facility] [address] [facility] [address] [facility]. [facility]. [address] [facility]. [facility] YOU HAVE RECEIVED A MEDICAL SCREENING EXAM AND THE RESULTS INDICATE THAT YOU DO NOT HAVE A CONDITION THAT REQUIRES URGENT TREATMENT IN THE EMERGENCY DEPARTMENT. FURTHER EVALUATION AND TREATMENT OF YOUR CONDITION CAN WAIT UNTIL YOU ARE SEEN IN YOUR DOCTORS OFFICE WITHIN THE NEXT 1-2 DAYS. IT IS YOUR RESPONSIBILITY TO MAKE AN APPOINTMENT FOR FOLOW-UP CARE. IF YOU HAVE A PRIMARY DOCTOR --you should call your primary doctor and schedule and appointment IF YOU DO NOT HAVE A PRIMARY DOCTOR YOU CAN CALL OUR PHYSICIAN REFERRAL HOTLINE AT . IF YOU CAN NOT AFFORD TO SEE A PHYSICIAN YOU CAN CHOSE FROM THE FOLLOWING [facility] INSTITUTIONS: [facility] [address] [place] [address] [facility] [address] [place] [address] [facility] [address] [place] [address] [facility] URGENT CARE/SPECIALTIES [employer] ART TEACHER REFERRAL LIST [place] [address] [facility] [address] [place] [address] OFFICE FAX , ROBERT [address] [place], [place] [id number] [facility] [address] [place] [address] [facility] [address] [facility], [address], [facility] [address] [address] [address] [place] [address] [facility] [address] [place], [place] [address] [address] [facility] [address] - NOHEMY COMER [address], [facility] [address] [address] [address], [facility] [address] [address], [place] [address] [place] [address] [facility] Hours: 8:00 am - 5:00 pm Additional Instructions: Llame al doctor MAANA y naya ebonie JOLEEN PARA DENTRO DE 2-3 DAWSON para ebonie derivacin para ebonie derivacin para diomedes a un gineclogo para ebonie biopsia endometrial. Dgale a la secretaria que nosotros le instruimos hacer esta joleen.Avise o llame si castro condicin se empeora antes de la joleen. Regresa aqui si peor o no mejor. ERIN RIVERS PA-C Jan 26, 2019 14:36
== END 2019-01-25 18:17 | disposition home or self-care (01) ==
LOC: FTE 13:11
DX: N95.0 Postmenopausal bleeding (principal); E11.9 Type 2 diabetes mellitus without complications; I10 Essential (primary) hypertension; J45.909 Unspecified asthma, uncomplicated; Z79.84 Long term (current) use of oral hypoglycemic drugs
CPT/HCPCS: 36415; 76830; 76856; 80053; 81001; 83690; 85025; Z7502

== ENCOUNTER 2019-04-16 22:57 | Emergency (ER) | payer OTHER ==
[~2019-04-16] VITALS: Ht 154.9 cm; Wt 85.1 kg
[~2019-04-16 22:57] MED LIST changes: +ACET500C5 PO
[2019-04-16 22:58] VITALS: Ht 154.9 cm; Wt 85.1 kg
--- NOTE | 2019-04-17 | ERD ---
ER Documentation Chief Complaint Chief Complaint right upper/lower abdominal pain x 3 days HPI 54-year-old woman complains of suprapubic abdominal pain x3 days with some nausea but no vomiting, she denies fevers, no back pain, no chest pain or shortness of breath. She denies other symptoms. ROS All systems reviewed and are negative except as per history of present illness. Medications Home Meds Active Scripts Ibuprofen* (Motrin*) 600 Mg Tab, 600 MG PO Q8 PRN for PAIN AND/OR INFLAMMATION, #30 TAB Prov:CHINEDU PACKER MD 04/17/19 Cephalexin* (Keflex*) 500 Mg Capsule, 500 MG PO QID for 5 Days, CAP Prov:CHINEDU PACKER MD 04/17/19 Acetaminophen* (Tylophen*) 500 Mg Capsule, 1 CAP PO Q6H PRN for PAIN AND OR ELEVATED TEMP, #20 CAP Prov:ERIN RIVERS PA-C 01/25/19 Ondansetron Hcl* (Zofran*) 4 Mg Tablet, 4 MG PO Q8H PRN for NAUSEA AND/OR VOMITING, #30 TAB Prov:EMBER KELLY MD 01/23/19 Ibuprofen* (Motrin*) 600 Mg Tab, 600 MG PO Q6H PRN for PAIN AND/OR INFLAMMATION, #30 TAB Prov:EMBER KELLY MD 01/23/19 Albuterol Sulfate* (Proair HFA*) 8.5 Gm Hfa.aer.ad, 2 PUFF INH Q4H PRN for WHEEZING AND SOB, #1 INHALER Prov:ASTRID CHAVIRA 06/15/18 Hydrochlorothiazide* (Hydrochlorothiazide*) 25 Mg Tab, 25 MG PO DAILY, #30 TAB Prov:ASTRID CHAVIRA 06/15/18 Azithromycin* (Zithromax*) 250 Mg Tablet, 250 MG PO .ZPACK DIRECTED, #6 TAB TAKE 500 MG (2 TABS) THE FIRST DAY THEN 250 MG (1 TAB) DAYS 2-5 Prov:AKILA MCGARRY MD 06/27/17 Ibuprofen* (Motrin*) 800 Mg Tab, 800 MG PO Q6H PRN for PAIN AND OR ELEVATED TEMP, #30 TAB Prov:AKILA MCGARRY MD 9/9/17 Ibuprofen* (Motrin*) 600 Mg Tab, 600 MG PO Q6H PRN for PAIN AND OR ELEVATED TEMP, #30 TAB Prov:CHRISTIAN DENISE NP 01/28/17 Guaifenesin* (Robitussin*) 100 Mg/5 Ml Syrup, 200 MG PO Q4H PRN for COUGH, #120 ML Prov:CHRISTIAN DENISE. FRANKLIN 01/28/17 Sodium Chloride (Saline Nasal Mist) 126 Ml Mist, 2 SPRAY NASAL Q2H PRN for NASAL CONGESTION, #1 BOTTLE Prov:CHRISTIAN DENISE. MAILS SUPERVISOR 01/28/17 Fluticasone Propionate (Flonase Allergy Relief) 9.9 Ml [place].susp, 1 SPRAY NASAL DAILY, #1 BOTTLE TO EACH NOSTRIL Prov:CHRISTIAN DENISE NP 01/28/17 Ofloxacin* (Floxin* Otic) 0.3% -10 Ml Soln, 5 DROP BOTH EARS BID for 10 Days, BOTTLE Prov:ERIN RIVERS PA-C 05/28/16 Tramadol HCl (Tramadol HCl) 50 Mg Tablet, 50 MG PO Q4 PRN for PAIN, #20 TAB Prov:ERIN RIVERS PA-C 05/28/16 Doxycycline Hyclate* (Doxycycline Hyclate*) 100 Mg Tablet.dr, 100 MG PO BID for 7 Days, TAB Prov:ERIN RIVERS PA-C 05/28/16 Hydrocodone Bit-Acetaminophen* ([place]*) 7.5-325 Tablet, 1 TAB PO Q4H PRN for PAIN, #14 TAB Prov:EDIS DEGROOT DO 02/24/16 Ranitidine Hcl* (Zantac*) 150 Mg Tablet, 150 MG PO BID PRN for abdominal pain, #30 TAB Prov:EDIS DEGROOT DO 02/24/16 Ondansetron Hcl* (Zofran* ODT) 4 mg -ODT Tab.disper, 4 MG PO Q6 PRN for NAUSEA AND/OR VOMITING, #20 TAB Prov:JUSTINE DICKENS PA-C 08/04/15 Hydrocodone Bit-Acetaminophen* ([place]*) 5-325 Mg Tab, 1 TAB PO Q6 PRN for PAIN, #20 TAB Prov:JUSTINE DICKENS PA-C 08/04/15 Metronidazole* (Flagyl*) 500 Mg Tablet, 500 MG PO Q8 for 10 Days, TAB Prov:ADI JORGE MAILS SUPERVISOR 07/29/15 Ciprofloxacin Hcl* (Ciprofloxacin Hcl*) 500 Mg Tablet, 500 MG PO BID for 10 Days, TAB Prov:ADI JORGE MAILS SUPERVISOR 07/29/15 Hydrocodone Bit-Acetaminophen* ([place]*) 5-325 Mg Tab, 1 TAB PO Q6H PRN for PAIN, #15 TAB Prov:ADI JORGE MAILS SUPERVISOR 07/29/15 Metformin Hcl* (Metformin Hcl*) 500 Mg Tablet, 500 MG PO AC BREAKFAST DINNER for 60 Days, TAB Prov:WALTER VELASQUEZ 07/08/15 Pantoprazole* (Protonix*) 40 Mg Tablet.dr, 40 MG PO DAILY for 30 Days, TAB Prov:RONWALTER LEVY 07/08/15 Allergies Allergies: Coded Allergies: Penicillins (Verified Allergy, Unknown, 02/24/16) PMhx/Soc Diabetes mellitus, hypertension, asthma, GERD, cholecystitis status post cholecystectomy, recurrent abdominal pain History of Surgery: Yes (LT EAR SX, Cholecystectomy) Anesthesia Reaction: No Hx Neurological Disorder: No Hx Respiratory Disorders: Yes (Asthma) Hx Cardiac Disorders: Yes (Hypertension, diabetes) Hx Psychiatric Problems: No Hx Miscellaneous Medical Probl: Yes (GERD) Hx Alcohol Use: No Hx Substance Use: No Hx Tobacco Use: No Smoking Status: Never smoker Physical Exam Vitals Vital Signs Date Temp Pulse Resp B/P (MAP) Pulse Ox O2 O2 Flow FiO2 Time Delivery Rate 04/17/19 65 16 139/71 99 Room Air 01:58 (93) 04/16/19 98.9 76 18 176/88 99 22:58 (117) Physical Exam GENERAL: Well-developed, well-nourished, well-hydrated, in no apparent distress, looks nontoxic in appearance HEENT: Moist mucous membranes, pink conjunctiva, no cervical spine tenderness or step-off deformities, no goiter, no jaundice or icterus, extraocular movements intact without pain. No submandibular induration, and no pharyngeal erythema NEURO: Alert and oriented 3, cranial nerves II through XII intact bilaterally, pupils equal round reactive to light, no focal deficits or facial asymmetry, sensation intact distally Strength 5/5 in upper and lower extremities b ilaterally CARDIAC: Regular rate and rhythm, no murmurs rubs or gallops LUNGS: Clear bilaterally no wheezing crackles or stridor ABDOMEN: Soft nontender, no guarding, no rigidity, no rebound, no psoas sign no obturator sign. Normoactive bowel sounds SKIN: Warm and dry to touch, no abrasions, contusions, or hematomas, no lacerations, no ecchymosis, no target lesions, and without ulcers EXTREMITIES: No clubbing cyanosis or edema, calves are bilaterally symmetrical, no Homans sign, no popliteal cord sign. Distal pulses equal and bilateral PSYCH: Normal affect without agitation or irritability Result Diagram: 04/16/19 2355 04/16/19 235 Results 24 hrs Laboratory Tests Test 04/16/19 23:42 04/16/19 23:55 Urine Color YELLOW Urine Clarity CLEAR Urine pH 7.0 Urine Specific [place] 1.015 Urine Ketones NEGATIVE mg/dL Urine Nitrite NEGATIVE mg/dL Urine Bilirubin NEGATIVE mg/dL Urine Urobilinogen NEGATIVE mg/dL Urine Leukocyte Esterase 3+ Airam/ul Urine Microscopic RBC 1 /HPF Urine Microscopic WBC 18 /HPF Urine Squamous Epithelial Cells FEW /HPF Urine Hemoglobin NEGATIVE mg/dL Urine Glucose NEGATIVE mg/dL Urine Total Protein NEGATIVE mg/dl White Blood Count 6.4 10^3/ul Red Blood Count 4.49 10^6/ul Hemoglobin 12.8 g/dl Hematocrit 38.2 % Mean Corpuscular Volume 85.1 fl Mean Corpuscular Hemoglobin 28.5 pg Mean Corpuscular Hemoglobin Concent 33.5 g/dl Red Cell Distribution Width 12.5 % Platelet Count 168 10^3/UL Mean Platelet Volume 12.0 fl Immature Granulocytes % 0.500 % Neutrophils % 60.3 % Lymphocytes % 29.9 % Monocytes % 7.1 % Eosinophils % 1.9 % Basophils % 0.3 % Nucleated Red Blood Cells % 0.0 /100WBC Immature Granulocytes # 0.030 10^3/ul Neutrophils # 3.9 10^3/ul Lymphocytes # 1.9 10^3/ul Monocytes # 0.5 10^3/ul Eosinophils # 0.1 10^3/ul Basophils # 0.0 10^3/ul Nucleated Red Blood Cells # 0.0 10^3/ul Prothrombin Time 12.8 Sec Prothrombin Time Ratio 1.0 INR International Normalized Ratio 0.95 Activated Partial Thromboplast Time 38.1 Sec Sodium Level 145 mmol/L Potassium Level 3.7 mmol/L Chloride Level 107 mmol/L Carbon Dioxide Level 28 mmol/L Anion Gap 10 Blood Urea Nitrogen 14 mg/dl Creatinine 0.41 mg/dl Est Glomerular Filtrat Rate mL/min > 60 mL/min Glucose Level 158 mg/dl Calcium Level 9.0 mg/dl Total Bilirubin 0.3 mg/dl Direct Bilirubin 0.00 mg/dl Indirect Bilirubin 0.3 mg/dl Aspartate Amino Transf (AST/SGOT) 31 IU/L Alanine Aminotransferase (ALT/SGPT) 48 IU/L Alkaline Phosphatase 75 IU/L Total Protein 7.0 g/dl Albumin 4.2 g/dl Globulin 2.80 g/dl Albumin/Globulin Ratio 1.50 Lipase 59 U/L Current Medications Medications Dose Sig/Theodora Start Time Status Last (Trade) Ordered Route PRN Stop Time Admin Dose Reason Admin Sodium 1,000 ml @ Q1H STAT 04/17/19 DC 04/17/19 Chloride 1,000 mls/hr IV 00:03 00:37 04/17/19 01:02 Ketorolac 15 mg ONCE STAT 04/17/19 DC 04/17/19 Tromethamine IV 00:03 00:37 (Toradol) 04/17/19 00:07 Ceftriaxone 50 ml @ ONCE ONCE 04/17/19 DC 04/17/19 Sodium 100 mls/hr IVPB 00:30 00:37 04/17/19 00:59 Procedures/MDM IV line was established patient was placed on panel monitor rhythm strip revealed a sinus rhythm at about 80 bpm with upright P and T waves. Patient was afebrile I administered 1 L normal saline IV, Toradol 15 mg IV, Zofran 4 mg IV The scan of the abdomen pelvis was performed, IMPRESSION: 1. Hepatosplenomegaly. 2. Surgical absence of the gallbladder. 3. Degenerative anterior spondylolisthesis of L5 on S1 with bilateral L5 neural foraminal stenosis. 4. Otherwise unremarkable CT of the abdomen and pelvis with no evidence of bowel obstruction, bowel perforation, urinary tract stone, urinary tract obstruction, or focal inflammatory process. CBC and electrolytes are normal, liver function tests were normal, urinalysis was positive for infection. I administered ceftriaxone 1 g IV x1 Differential diagnoses considered, included but not limited to acute coronary syndrome, pulmonary embolism, aortic dissection, abdominal aortic aneurysm, sepsis, stroke, meningitis, encephalitis, pneumonia, appendicitis, cho lecystitis, bowel obstruction, pyelonephritis, nephrolithiasis, cystitis, as well as metabolic, hematologic, and electrolyte abnormalities. As well as abscess, cellulitis, fractures, and dislocations. Patient feels much better at this time, and vital signs are normal, symptoms have improved. I did give strict instructions to return to the ED if symptoms continue or worsen, patient will otherwise follow-up with primary care physician. Patient understood instructions and agreed to plan. Disclaimer: Inadvertent spelling and grammatical errors are likely due to EHR/dictation software use and do not reflect on the overall quality of patient care. Also, please note that the electronic time recorded on this note does not necessarily reflect the actual time of the patient encounter. Departure Diagnosis: Primary Impression: UTI (urinary tract infection) Urinary tract infection type: acute cystitis Hematuria presence: without hematuria Qualified Codes: N30.00 - Acute cystitis without hematuria Condition: CHINEDU Tesfaye MD Apr 17, 2019 00:00
[2019-04-17] MEDS ORDERED: KETOROLAC 15 MG INJ IV STA (00:03)
[2019-04-17] MEDS ORDERED: SOD CHLORIDE 0.9% 1,000 ML IV STA (00:03)
[2019-04-17] MEDS ORDERED: CEFTRIAXONE 1 GM/50 ML (PMX) 50 ML IVPB ONE (00:30)
[2019-04-17] MEDS ORDERED: IBUP-1542 PO (01:47)
[2019-04-17] MEDS ORDERED: CEPH-443 PO (01:47)
[2019-04-17 01:58] VITALS: BP 139/71; PULSE 65; RESP 16
== END 2019-04-17 02:00 | disposition home or self-care (01) ==
LOC: E/R 22:57
DX: N39.0 Urinary tract infection, site not specified (principal); J45.909 Unspecified asthma, uncomplicated; E11.9 Type 2 diabetes mellitus without complications; I12.0 Hypertensive chronic kidney disease with stage 5 chronic kidney disease or end stage renal disease; N18.6 End stage renal disease; Z79.84 Long term (current) use of oral hypoglycemic drugs
CPT/HCPCS: 36415; 74176; 80053; 81001; 83690; 85025; 85610; 85730; 96374; 96375; J0696; J1885; J7030; Z7502

== ENCOUNTER 2019-08-22 15:40 | Emergency (ER) | payer OTHER ==
[~2019-08-22] VITALS: Ht 162.6 cm; Wt 84.2 kg
[~2019-08-22 15:40] MED LIST changes: +CEPH-443 PO; +DOXY-214 PO; -DOXY100T20 PO; +ONDA4TAB14 PO; +RANI-535 PO; -RANI150T35 PO
[2019-08-22 15:53] VITALS: Ht 162.6 cm; Wt 84.2 kg
[2019-08-22] MEDS ORDERED: morphine 4 MG/ML VIAL IV STA (16:32)
[2019-08-22] MEDS ORDERED: ONDANSETRON 4 MG INJ IV STA (16:32)
[2019-08-22 18:25] VITALS: BP 152/81; PULSE 74; RESP 17
== END 2019-08-22 18:26 | disposition home or self-care (01) ==
LOC: E/R 15:40
DX: R10.31 Right lower quadrant pain (principal); J45.909 Unspecified asthma, uncomplicated; I10 Essential (primary) hypertension; E11.9 Type 2 diabetes mellitus without complications
CPT/HCPCS: 36415; 74176; 80053; 81001; 83690; 85025; 96374; 96375; J2270; J2405; Z7502